=== PATIENT | male | born 1955 | race Caucasian/White ===

== ENCOUNTER 2021-12-08 11:25 | Outpatient (CLI) | payer MEDICARE, SELFPAY ==
[2021-12-08 21:22] LABS: Albumin* 4.6 g/dL (3.3-5.0); Chloride* 100 mmol/L (96-114); Sodium* 141 mmol/L (135-149)
[2021-12-08 21:24] LABS: Cholesterol* 128 mg/dL (90-199); Estimated Glomerular Filt Rate 83 ml/min
[2021-12-08 21:25] LABS: Alanine Aminotransferase* 36 U/L (4-50); Alkaline Phosphatase* 64 U/L (40-150); Aspartate Amino Transferase* 35 U/L (12-35); Bilirubin Total* 0.7 mg/dL (0.1-1.5); Blood Urea Nitrogen* 23 mg/dL (7-30); Carbon Dioxide* 33 mmol/L (20-32); Glucose* 104 mg/dL (60-115); Total Protein* 7.6 g/dL (6.0-8.3); Triglycerides* 187 mg/dL (40-149)
[2021-12-08 21:36] LABS: Calcium* 8.9 mg/dL (8.4-10.6); HDL Cholesterol* 47 mg/dL (>=40); LDL Cholesterol Calculated 44 mg/dL (<100)
[2021-12-08 21:52] LABS: PSA Screen* 0.72 ng/mL (0.10-4.00)
== END 2021-12-08 11:26 | disposition home or self-care (01) ==
PROVIDERS: PCP Family Medicine; Visit Provider Family Medicine
DX: Z00.00 Encounter for general adult medical examination without abnormal findings (principal); E78.5 Hyperlipidemia, unspecified; I25.10 Atherosclerotic heart disease of native coronary artery without angina pectoris; I10 Essential (primary) hypertension; R73.03 Prediabetes; Z12.5 Encounter for screening for malignant neoplasm of prostate
CPT/HCPCS: 80053; 80061; 84153

== ENCOUNTER 2023-01-19 09:38 | Outpatient (CLI) | payer MEDICARE, SELFPAY | END 2023-01-19 09:39 | disposition home or self-care (01) | PROVIDERS: PCP Physician Assistant Medical; Visit Provider Physician Assistant Medical | DX: Z00.00 Encounter for general adult medical examination without abnormal findings (principal); E78.5 Hyperlipidemia, unspecified; I10 Essential (primary) hypertension; R73.03 Prediabetes; I25.10 Atherosclerotic heart disease of native coronary artery without angina pectoris; Z96.659 Presence of unspecified artificial knee joint; Z12.5 Encounter for screening for malignant neoplasm of prostate | CPT/HCPCS: 80053; 80061; 84153 ==

== ENCOUNTER 2024-02-15 11:40 | Outpatient (CLI) | payer MEDICARE, SELFPAY ==
--- OUTSIDE RECORDS SUMMARY | 2024-02-17 09:49 | XMS_ITS | Data Portability ---
Author Organization [place] [facility] [place] [facility] Address [address] [place] [address] Assessment Encounter Date Assessment Date Assessment LastModified by Organization Details LastModified Time 12/03/2020 12/03/2020 65 year old male with a right epididymal lesion. [email or web address] Not available 12/03/2020 12:10:33 Plan of Treatment Reminders Order Date Submit Date Provider Last Modified By Organization Details Last Modified Time Details Appointments None record ed. Lab None record ed. Referral None record ed. Procedures None record ed. Surgeries None record ed. Imaging None record ed. Medication Orders None record ed. Patient TargetsNo targets recorded. Patient InstructionsNo instructions recorded. Reason for Referral None Reported. Procedures Surgical History Date Name Laterality Status Provider Name and Address Organization Details Recorded Time 04/26/19 18 Diagnostic colonoscopy completed Not Available Health Note 12/02/2020 21:44:54 Excise epiphyseal bar completed Not Available Health Note 12/02/2020 21:44:54 Insert epicard eltrd open completed Not Available Health Note 12/02/2020 21:44:54 Removal of sperm duct(s) completed Not Available Health Note 12/02/2020 21:44:54 Imaging Results None recorded. Procedure Notes None recorded. Medical Equipment None Reported. Allergies No known drug allergies Medications Name Sig Start Date Stop Date Status Note LastModified by Organization Details LastModified Time amlodipine 5 mg tablet TAKE ONE TABLET BY MOUTH EVERY DAY 12/03 completed Not Available Not Available Not Available triamterene 37.5 mg-hydrochl orothiazide 25 mg capsule TAKE ONE CAPSULE BY MOUTH EVERY DAY active Not Available Not Available No t Available terbinafine HCl 250 mg tablet TAKE ONE TABLET BY MOUTH EVERY DAY active Not Available Not Available No t Available cephalexin 500 mg capsule TAKE 4 CAPSULES BY MOUTH 1 HOUR PRIOR TO DENTAL PROCEDURE active Not Available Not Available No t Available furosemide 20 mg tablet TAKE ONE TABLET BY MOUTH EVERY DAY active Not Available Not Available No t Available levofloxaci n 500 mg tablet TAKE ONE TABLET BY MOUTH EVERY DAY 12/03 completed Not Available Not Available Not Available lisinopril 40 mg tablet TAKE ONE TABLET BY MOUTH EVERY DAY active Not Available Not Available No t Available ezetimibe 10 mg tablet 10mg 1/day active Not Available Not Available No t Available rosuvastati n 20 mg tablet TAKE ONE TABLET BY MOUTH AT BEDTIME 12/03 completed Not Available Not Available Not Available Fish Oil 1200 mg 1/day active Not Available Not Available No t Available amlodipine 5mg 1/day active Not Available Not Available Not Available lisinopril 40mg 1/day active Not Available Not Available No t Available multivitami n don't know 1/day active Not Available Not Available No t Available rosuvastati n 20 mg sprinkle capsule 20mg 3 times per week/day active Not Available Not Available No t Available Vitals Date Recorded Body weight Body height Body mass index (BMI) Provider Name and Address Organization Details Last Updated DateTime 12/03/2020 [id number] 30193 g 182.88 cm 35.3 kg/m2 Not Available Health Note 12/03/2020 08:31:15 Social History Question Answer Notes LastModified by Organizat ion Details LastModified Time Tobacco Smoking Status Former Smoker Not Available Health Note 12/02/2020 21:44:55 What Is Your Level Of Alcohol Consumption? Occasional [email or web address] Information not available 12/02/2020 What Is Your Level Of Caffeine Consumption? None [email or web address] Information not available 12/02/2020 How Much Tobacco Do You Chew? Never Used Chewing Tobacco [email or web address] Information not available 12/02/2020 Do You Or Have You Ever Used E-cigarettes Or Vape? Never Used Electronic Cigarettes [email or web address] Information not available 12/02/2020 When Did You Quit Smoking? 16+ Years Since Last Cigarette [email or web address] Information not available 12/02/2020 Recreational Drug Use No [email or web address] Information not available 12/02/2020 Marital Status [email or web address] Informatio n not available 12/02/2020 What Was The Date Of Your Most Recent Tobacco Screening? 12/03/2020 Information not available 12/03/2020 Do You Or Have You Ever Used Smokeless Tobacco? Never Used Smokeless Tobacco [email or web address] Information not available 12/02/2020 How Many Years Have You Smoked Tobacco? 15 [email or web address] Information not available 12/02/2020 Do You Or Have You Ever Used Any Other Forms Of Tobacco Or Nicotine? No Information not available 12/03/2020 Sex: Unknown Functional Status None recorded. Mental Status None recorded. Family History Relationship Description Onset Age of this Age Resolved Age Notes LastModified by Organization Details LastModified Time Maternal Grandfather Family history of diabetes mellitus [email or web address] Not available 2020 21:44:53 Paternal Grandfather Family history of malignant neoplasm [email or web address] Not available 2020 21:44:53 Medical History Condition Response High Blood Pressure Y Kidney Stones N Depression N Lung Disease N GERD/Acid Reflux N Diabetes N Sexually Transmitted Infection N Bleeding Disorder N Cancer N High Cholesterol Y Heart Disease Y Immunizations Vaccine Type Date Status Provider Name and Address Organization Details Recorded Time SARS-COV-2 (COVID-19) vaccine, UNSPECIFIED 07/21/2020 completed Not Available Health Note 12/02/2020 21:44:59 pneumococcal, unspecified formulation 03/04/2020 completed Not Available Health Note 12/02/2020 21:44:59 influenza, unspecified formulation 03/04/2020 completed Not Available Health Note 12/02/2020 21:44:59 Past Encounters Encounter ID Performer Location Encounter Start Date Encounter Closed Date Diagnosis/Indication Diagnosis SNOMED-CT Code Diagnosis ICD10 Code [id number] Bernardino Walters MD [facility] [address] [place] [address] 12/03/2020 08:31:56 12/03/2020 16:04:13 Cyst of epididymis 18541781 N50.3 Health Concerns Section Related Observation LastModified by Organization Detai ls LastModified Time None Recorded Concern Status LastModified by Organization Details LastModified Time None Recorded Advance Directives Directive None Recorded Payers Encounter Date Sequence Insurance Name Policy Number Policy Schmidt Covered Member ID Schmidt Member ID Guarantor Name 12/03/2020 1 [place] (MEDICARE [place]AC[place] PPO) [id number] Toby Harrell [id number] Toby Harrell Notes Date Note Type Note Provider Name and Address Organization Details Recorded Time 12/03/2020 text/html HPI Notes: This is a 65 year old male who is referred by Dr. Kraft for the evaluation and management of a testicular lesion. He first noticed this about 2 months ago. Around the beginning of September he noted worsening right scrotal swelling. He was treated with a coruse of antibiotic with improvement in this. But he did subsequently have a ultrasound performed 10/31/2020 which showed a nodular area of the epididymidis on the right measuring about 1.4 cm, but no solid masses or areas concerning for malignancy. Not painful or bothersome He is participating in prostate cancer screening. His most recent PSA was 0.61 ng/mL (09/09/2020) There is no family history of prostate cancer. Bernardino Walters MD [address] [place] [address],[place] [address], [place], [address], [facility] 12/03/2020 12:10:51
--- OUTSIDE RECORDS SUMMARY | 2024-02-17 09:49 | XMS_ITS | Clinical Summary ---
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 Active aspirin 81 mg tablet Take 81 mg by mouth once daily with a meal. 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 Max acetaminophen dose: 4000mg in 24 hrs. 90 tablet 04/02/2019 Active amLODIPine (NORVASC) 5 mg tabletIndications:HT N (hypertension) Take 1 tablet by mouth once daily. 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 90 tablet 3 02/22/2020 Active furosemide (LASIX) 20 mg tablet Take 20 mg by mouth once daily. 12/09/2019 Active triamterene-hydrochl orothiazide, 37.5-25 mg, (DYAZIDE) 37.5-25 mg capsule Take 1 capsule by mouth. 12/16/2019 Active rosuvastatin (CRESTOR) 20 mg tabletIndications: CVD (arteriosclerotic cardiovascular disease),Coronary artery disease of [place] artery of [place] heart with stable angina pectoris (HC) TAKE ONE TABLET BY MOUTH AT BEDTIME 90 Tablet 02/28/2021 Active ezetimibe (ZETIA) 10 mg tabletIndications: CVD (arteriosclerotic cardiovascular disease) Take 1 Tablet (10 mg) by mouth once daily. 90 Tablet 3 04/21/2021 Active Active Problems Problem Noted Date Diagnosed Date Dyslipidemia 04/04/2019 Acute blood loss anemia 03/30/2019 CAD s/p 5v CABG 03/29/19 03/28/2019 Overview (03/30/2019): CABG x 5 with LIN-LAD, Radial artery-OM1, RSVG-D1 and sequenced to RPDA-RPLA 03/29/[address] Diaz History of rheumatic fever 03/28/2019 Prediabetes 03/28/2019 JOAN on CPAP 08/09/2014 Fungal nail infection 11/30/2012 Essential hypertension 10/24/2009 Resolved Problems Problem Noted Date Diagnosed Date Resolved Date Post-op MARCELINA 04/02/2019 04/21/2019 Immunizations Name Administration Dates Next Due Tdap 01/17/2008 Family History Medical History Relation Name Comments Hypertension Brother Hypertension Sister Relation Name Status Comments Brother Father (Age 37) MVA Mother (Age 34) MVA Sister Social History Tobacco Use Types Packs/Day Years Used Date Smoking Tobacco: Former Cigarettes 1.5 17 0 04/26/1968 - 04/26/1985 Smokeless Tobacco: Never Alcohol Use Standard Drinks/Week Comments Yes 3 (1 standard drink = 0.6 oz pur e alcohol) Minimal PHQ-2 Answer Date Recorded PHQ-2 Score 0 04/17/2019 Social Connections Answer Date Recorded Frequency of Communication with Friends and Fami ly Not on file 04/21/2021 Financial Resource Strain Answer Date R ecorded Difficulty of Paying Living Expenses Not on file 04/21/2021 Difficulty of Paying Living Expenses Not on file 04/21/2021 Sex and Gender Information Value Date Recorded Sex Assigned at Not on file Gender Identity Not on file Sexual Orientation Not on file Obstetrics History Last Filed Vital Signs Vital Sign Reading Time Taken Comments Blood Pressure 116/72 04/21/2021 10:09 AM FOOD PRODUCTION MANAGER Pulse 66 04/21/2021 10:09 AM FOOD PRODUCTION MANAGER Temperature 36.8 ??C (98.3 ??F) 04/02/2019 7:30 AM CS T Respiratory Rate 16 04/21/2021 10:09 AM FOOD PRODUCTION MANAGER Oxygen Saturation 97% 04/21/2021 10:09 AM FOOD PRODUCTION MANAGER Inhaled Oxygen Concentration - - Weight 117.7 kg (259 lb 8 oz) 04/21/2021 10:09 A M FOOD PRODUCTION MANAGER Height 182.9 cm (6' 0.01) 04/21/2021 10:[address] Body Mass Index 35.19 04/21/2021 10:09 AM FOOD PRODUCTION MANAGER Plan of Treatment Health Maintenance Due Date Last Done Comments Hepatitis C screening for ag e 18-79 1973 Zoster (shingles) series for age 50+ (1 of 2) 2005 Colonoscopy through age 75 08/27/201608/27 (Completed outside of [facility]) Tetanus booster 01/16/2018 01/17/2008 Medicare Wellness for age 65+ 02/13/2020 Pneumococcal series for age 65+ (1 of 1 - PCV) 02/13/2020 Depression screening for age 12+ 04/21/2020 04/21/2019, 04/21/2019, 04/17/2019, Additional history exists BMI (ht and wt on same day) for age 18+ 04/21/2022 04/21/2021, 02/22/2020, 05/17/2019, Additional history exists COVID-19 vaccine series (2023- season) 2023 Influenza for age 65+ 12/26/2023 Lipids for age 45-75 04/14/2026 04/14/2021, 03/28/2019, 08/19/2012, Additional history exists Tdap Completed 01/17/2008 Procedures Procedure Name Priority Date/Time Associated Diagnosis Comments LIPID PANEL W REFLEX MEASURED LDL Routine 04/14/2021 8:51 AM FOOD PRODUCTION MANAGER CAD s/p 5v CABG 03/29/19 from Last 3 Months or Most Recently Relevant to Health Maintenance Results * (ABNORMAL) LIPID PANEL W REFLEX MEASURED LDL (04/14/2021 8:51 AM FOOD PRODUCTION MANAGER) CHOLESTEROL,TOTAL 89(L) 100 - 199 mg/dL 04/14/2021 3:41 PM FOOD PRODUCTION MANAGER [facility] TRIGLYCERIDES 86 <150 mg/dL 04/14/2021 3:41 PM FOOD PRODUCTION MANAGER [facility] HDL CHOLESTEROL 31(L) >40 mg/dL 3:41 PM FOOD PRODUCTION MANAGER [facility] NON-HDL CHOLESTEROL 58 <145 mg/dl 04/14/2021 3:41 PM FOOD PRODUCTION MANAGER [facility] CHOL/HDL RATIO 2.87 <4.50 04/14/2021 3:41 PM FOOD PRODUCTION MANAGER [facility] LDL CHOLESTEROL 41 <=130 mg/dL 04/14/2021 3:41 PM FOOD PRODUCTION MANAGER [facility] VLDL CHOLESTEROL 17 <=30 mg/dL 04/14/2021 3:41 PM FOOD PRODUCTION MANAGER [facility] PROVIDER ORDERED STATUS RANDOM 04/14/2021 3:41 PM FOOD PRODUCTION MANAGER [facility] Blood BLOOD SPECIMEN / Unknown Venipuncture / Unknown 04/14/2021 8:51 AM FOOD PRODUCTION MANAGER 04/14/2021 8:54 AM FOOD PRODUCTION MANAGER Armin Navarrete MD CHEMISTRY [facility] [address] [place] [address], from Last 3 Months or Most Recently Relevant to Health Maintenance Advance Directives * Full Code (Latest Code Status on File) Date Activated Date Inactivated Comments 03/28/2019 9:01 AM 04/02/2019 1:10 PM Care Teams Milled Lumber Grader Relationship Specialty Start Date End Date Federico Potter MD PCP - General Family Practice 03/07/19 Armin Navarrete MD Cardiology Cardiovascular Disease 05/15/19
--- OUTSIDE RECORDS SUMMARY | 2024-02-17 09:49 | XMS_ITS | Continuity of Care Document ---
Author Name [facility] Organization [facility] Care Team Providers Care Table Games Supervisor Name Role Phone [facility] Unavailable Unavailable Problems Combined list of problems from Department of [facility] and [facility] facilities. It does not include entries that were removed or entered in error. Problem Status Onset Date Problem Type Date of Resolution Comments Source Bunion Active Condition [facility] Coronary arteriosclerosis Active Condition [facility] Erectile dysfunction [facility] Exposure to potentially hazardous substance Active Condition [facility] Hearing loss Active Condition [facility] History of appendectomy Active Condition [facility] History of coronary artery bypass grafting Active Condition [facility] HTN - Hypertension ([facility] [id number]) Active Condition [facility] Hyperlipidemia Active Condition [facility] Prediabetes Active Condition [facility] Sleep apnea Active Condition [facility] Tinnitus Active Condition [facility] Diagnosis: ICD-10-CM M21.40 Flat foot [pes planus] (acquired), unspecified foot Active Diagnosis [facility] Diagnosis: ICD-10-CM Z00.01 Encounter for general adult medical exam w abnormal findings Active Diagnosis [facility] Diagnosis: ICD-10-CM 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 Medication Details Route Status Patient Instructions Prescription Expires Prescription Number Last Dispense Date Ordering Provider Order Date Order Qty Source AMLODIPINE BESYLATE 10MG TAB TAKE ONE-HALF TABLET BY MOUTH EVERY DAY ORAL ACTIVE RADHIKAL RAYMOND E 2019 [facility] ASPIRIN TAB TAKE 81MG BY MOUTH EVERY DAY ORAL ACTIVE RADHIKAL RAYMOND E 2019 [facility] EZETIMIBE 10MG TAB TAKE ONE TABLET BY MOUTH EVERY DAY ORAL ACTIVE STOCK,TYS ON W 2020 [facility] FIBER TAB,CHEWABL E CHEW ONE TABLET BY MOUTH EVERY DAY ORAL ACTIVE RADHIKA,L RAYMOND E 2019 [facility] FISH OIL 1000MG (500MG DHA/EPA) CAP,ORAL TAKE 1 CAPSULE BY MOUTH EVERY DAY ORAL ACTIVE RADHIKA,L RAYMOND E 2019 [facility] FUROSEMIDE 20MG TAB TAKE ONE TABLET BY MOUTH EVERY DAY ORAL ACTIVE RADHIKA,L RAYMOND E 2019 [facility] HYDROCHLORO THIAZIDE/TR IAMTERENE TAB TAKE ONE TABLET BY MOUTH EVERY DAY ORAL ACTIVE STOCK,TYS ON W 2021 [facility] LISINOPRIL 40MG TAB TAKE ONE TABLET BY MOUTH EVERY DAY ORAL ACTIVE RADHIKA,L RAYMOND E 2019 [facility] MELATONIN CAP/TAB TAKE BY MOUTH AT BEDTIME ORAL ACTIVE RADHIKA,L RAYMOND E 2019 [facility] MULTIVITAMI NS CAP/TAB TAKE ONE TABLET BY MOUTH EVERY DAY ORAL ACTIVE RADHIKA,L RAYMOND E 2019 [facility] PSYLLIUM PWDR,ORAL TAKE 1 TEASPOON FUL BY MOUTH EVERY DAY ORAL ACTIVE RADHIKA,L RAYMOND E 2019 [facility] ROSUVASTATI N CA 5MG TAB TAKE FOUR TABLETS BY MOUTH 3X PER WEEK ORAL ACTIVE STOCK,TYS ON W 2020 [facility] Immunizations Combined list of available immunizations from the Department of Defense and Veterans Affairs facilities. Immunization Series Date Given Administered By Site Reaction Lot Number CVX Code Drug Deputy Attorney General Status Comments Source INFLUENZA, HIGH-DOSE, QUADRIVALENT 2023 JC BELTRE RIGHT DELTO ID [id number] 197 complet ed [facility] COVID-19 (PFIZER), MRNA, LNP-S, PF, SHRAVAN-SUCROSE, 30 MCG/0.3 ML (AGES 12+ YEARS) 1 2023 JC BELTRE RIGHT DELTO ID [id number] 309 complet ed [facility] PNEUMOCOCCAL CONJUGATE PCV20, POLYSACCHARID E [id number] CONJUGATE, ADJUVANT, PF 2021 HABTESELASSIE ,ANDOM G LEFT DELTO ID [id number] 216 complet ed [facility] INFLUENZA VACCINE, QUADRIVALENT, ADJUVANTED 2021 HABTESELASSIE ,ANDOM G RIGHT DELTO ID [id number] 205 complet ed [facility] COVID-19 (Talk Local), MRNA, LNP-S, BIVALENT, PF, 30 MCG/0.3 ML DOSE 2021 300 complet ed [facility] INFLUENZA, INJECTABLE, QUADRIVALENT, PRESERVATIVE FREE 2020 150 complet ed [facility] COVID-19 (Talk Local), MRNA, LNP-S, PF, 30 MCG/0.3 ML DOSE 3 2020 208 complet ed PFR; [id number]; 1 [facility] COVID-19 (Talk Local), MRNA, LNP-S, PF, 30 MCG/0.3 ML DOSE 2 2020 208 complet ed PFR; [id number]; 1 [facility] COVID-19 (Talk Local), MRNA, LNP-S, PF, 30 MCG/0.3 ML DOSE 1 2020 208 complet ed PFR; [id number]; 1 [facility] ZOSTER RECOMBINANT 2 2020 187 complet ed [facility] INFLUENZA, INJECTABLE, QUADRIVALENT, PRESERVATIVE FREE 2019 150 complet ed [facility] PNEUMOCOCCAL POLYSACCHARID E [id number] 2019 33 complet ed [place]CK and CO,[id number] 22 [facility] ZOSTER RECOMBINANT 1 2019 187 complet ed [facility] TD (ADULT) 2018 138 complet ed [facility] TD (ADULT), 5 LF TETANUS TOXOID, PRESERVATIVE FREE, ADSORBED 2017 113 complet ed [facility] TDAP 2007 115 complet ed [facility] TD (ADULT), 2 LF TETANUS TOXOID, PRESERVATIVE FREE, ADSORBED 1998 09 complet ed [facility] Results Combined list of recent chemistry, hematology and other laboratory results from Department of Defense and Veterans Affairs, ranging from 15 months to all on record, depending upon the facility. Order Name Results Value Reference Range Date Interpretation Specimen Comments Source HEMOGLOB IN A1C HEMOGLOBIN A1C/HEMOGL OBIN.TOTAL IN BLOOD 6.2 4.0 - 6.0 04/29 H Specimen Type: BLOOD Comment: Values obtained from A1C measurement s can vary. For typical A1C assays, a reported value of 7.0 could actually be between 6.7 and 7.3 if measured by a reference method. A reported value of 9.0 could actually be between 8.7 and 9.3. Ref: http://www. ngsp.org/[place] Pdata.asp Ordering Provider: REGINA ALFROD Report Released Date/Time: Apr 09, 2022 11:32 AM Reporting Lab: [facility] [address] Performing Lab: [facility] [address] [place] [facility] LIPID PANEL,NO N-FASTIN G CHOLESTERO L [MASS/VOLU ME] IN SERUM OR PLASMA 102 mg/dL <199 - 199 04/29 Specimen Type: PLASMA No comment entered. Ordering Provider: REGINA ALFORD Report Released Date/Time: Apr 09, 2022 11:32 AM Reporting Lab: [facility] [address] Performing Lab: [facility] [address] [place] [facility] LIPID PANEL,NO N-FASTIN G CHOLESTERO L IN HDL [MASS/VOLU ME] IN SERUM OR PLASMA 39 mg/dL 40 04/29 L Specimen Type: PLASMA No comment entered. Ordering Provider: REGINA ALFORD Report Released Date/Time: Apr 09, 2022 11:32 AM Reporting Lab: [facility] [address] Performing Lab: [facility] [address] [place] [facility] LIPID PANEL,NO N-FASTIN G CHOLESTERO L IN LDL [MASS/VOLU ME] IN SERUM OR PLASMA BY CALCULATIO N 35 mg/dL <99 - 99 04/29 Specimen Type: PLASMA No comment entered. Ordering Provider: REGINA ALFORD Report Released Date/Time: Apr 09, 2022 11:32 AM Reporting Lab: [facility] [address] Performing Lab: [facility] [address] [place] [facility] LIPID PANEL,NO N-FASTIN G CHOLESTERO L IN VLDL [MASS/VOLU ME] IN SERUM OR PLASMA BY CALCULATIO N 28 mg/dL <29 - 29 04/29 Specimen Type: PLASMA No comment entered. Ordering Provider: REGINA ALFORD Report Released Date/Time: Apr 09, 2022 11:32 AM Reporting Lab: [facility] [address] Performing Lab: [facility] [address] [place] [facility] LIPID PANEL,NO N-FASTIN G CHOLESTERO L NON HDL [MASS/VOLU ME] IN SERUM OR PLASMA 63 mg/dL <129 - 129 04/29 Specimen Type: PLASMA No comment entered. Ordering Provider: REGINA ALFORD Report Released Date/Time: Apr 09, 2022 11:32 AM Reporting Lab: [facility] [address] Performing Lab: [facility] [address] [place] [facility] LIPID PANEL,NO N-FASTIN G TRIGLYCERI DE [MASS/VOLU ME] IN SERUM OR PLASMA 139 mg/dL <149 - 149 04/29 Specimen Type: PLASMA No comment entered. Ordering Provider: REGINA ALFORD Report Released Date/Time: Apr 09, 2022 11:32 AM Reporting Lab: [facility] [address] Performing Lab: [facility] [address] [place] [facility] BASIC METABOLI C PANEL+MG CREATININE [MASS/VOLU ME] IN SERUM OR PLASMA 1.0 mg/dL 0.7 - 1.2 04/29 Specimen Type: PLASMA No comment entered. Ordering Provider: REGINA ALFORD Report Released Date/Time: Apr 09, 2022 11:32 AM Reporting Lab: [facility] [address] Performing Lab: [facility] [address] [place] [facility] BASIC METABOLI C PANEL+MG UREA NITROGEN [MASS/VOLU ME] IN SERUM OR PLASMA 17 mg/dL 8 - 26 04/29 Specimen Type: PLASMA No comment entered. Ordering Provider: REGINA ALFORD Report Released Date/Time: Apr 09, 2022 11:32 AM Reporting Lab: [facility] [address] Performing Lab: [facility] [address] [place] [facility] BASIC METABOLI C PANEL+MG GLUCOSE [MASS/VOLU ME] IN SERUM OR PLASMA 120 mg/dL 70 - 100 04/29 H Specimen Type: PLASMA No comment entered. Ordering Provider: REGINA ALFORD Report Released Date/Time: Apr 09, 2022 11:32 AM Reporting Lab: [facility] [address] Performing Lab: [facility] [address] [place] [facility] BASIC METABOLI C PANEL+MG SODIUM [MOLES/VOL UME] IN SERUM OR PLASMA 140 mmol/L 136 - 145 04/29 Specimen Type: PLASMA No comment entered. Ordering Provider: REGINA ALFORD Report Released Date/Time: Apr 09, 2022 11:32 AM Reporting Lab: [facility] [address] Performing Lab: [facility] [address] [place] [facility] BASIC METABOLI C PANEL+MG POTASSIUM [MOLES/VOL UME] IN SERUM OR PLASMA 3.6 mmol/L 3.5 - 5.1 04/29 Specimen Type: PLASMA No comment entered. Ordering Provider: REGINA ALFORD Report Released Date/Time: Apr 09, 2022 11:32 AM Reporting Lab: [facility] [address] Performing Lab: [facility] [address] [place] [facility] BASIC METABOLI C PANEL+MG CHLORIDE [MOLES/VOL UME] IN SERUM OR PLASMA 101 mmol/L 98 - 107 04/29 Specimen Type: PLASMA No comment entered. Ordering Provider: REGINA ALFORD Report Released Date/Time: Apr 09, 2022 11:32 AM Reporting Lab: [facility] [address] Performing Lab: [facility] [address] [place] [facility] BASIC METABOLI C PANEL+MG CARBON DIOXIDE, TOTAL [MOLES/VOL UME] IN SERUM OR PLASMA 27 mmol/L 22 - 29 04/29 Specimen Type: PLASMA No comment entered. Ordering Provider: REGINA ALFORD Report Released Date/Time: Apr 09, 2022 11:32 AM Reporting Lab: [facility] [address] Performing Lab: [facility] [address] [place] [facility] BASIC METABOLI C PANEL+MG CALCIUM [MASS/VOLU ME] IN SERUM OR PLASMA 9.1 mg/dL 8.4 - 10.2 04/29 Specimen Type: PLASMA No comment entered. Ordering Provider: REGINA ALFORD Report Released Date/Time: Apr 09, 2022 11:32 AM Reporting Lab: [facility] [address] Performing Lab: [facility] [address] [place] [facility] BASIC METABOLI C PANEL+MG MAGNESIUM [MASS/VOLU ME] IN SERUM OR PLASMA 1.9 mg/dL 1.6 - 2.6 04/29 Specimen Type: PLASMA No comment entered. Ordering Provider: REGINA ALFORD Report Released Date/Time: Apr 09, 2022 11:32 AM Reporting Lab: [facility] [address] Performing Lab: [facility] [address] [place] [facility] BASIC METABOLI C PANEL+MG ANION GAP IN SERUM OR PLASMA 12 mmol/L 5 - 15 04/29 Specimen Type: PLASMA No comment entered. Ordering Provider: REGINA ALFORD Report Released Date/Time: Apr 09, 2022 11:32 AM Reporting Lab: [facility] [address] Performing Lab: [facility] [address] [place] [facility] BASIC METABOLI C PANEL+MG GLOMERULAR FILTRATION RATE/1.73 SQ M.PREDICTE D [VOLUME RATE/AREA] IN SERUM, PLASMA OR BLOOD BY CREATININE -BASED FORMULA (CKD-EPI 2020) 82 60 04/29 Specimen Type: PLASMA No comment entered. Ordering Provider: REGINA ALFORD Report Released Date/Time: Apr 09, 2022 11:32 AM Reporting Lab: [facility] [address] Performing Lab: [facility] [address] [facility] COVID-19 AND FLU/RSV DIAG PANEL(CE PHEID) SARS-COV-2 (COVID-19) RNA [PRESENCE] IN RESPIRATOR Y SPECIMEN BY SONIDO WITH PROBE DETECTION Not Detected 02/24 Specimen Type: NASOPHARYNG EAL Comment: Cepheid GeneXpert (618) Ordering Provider: SERENA JIMÉNEZ Report Released Date/Time: Jul 22, 2021 12:11 PM Reporting Lab: [facility] [address] Performing Lab: [facility] [address] [place] [facility] COVID-19 AND FLU/RSV DIAG PANEL(CE PHEID) INFLUENZA VIRUS A RNA [PRESENCE] IN UPPER RESPIRATOR Y SPECIMEN BY SONIDO WITH PROBE DETECTION Not Detected 02/24 Specimen Type: NASOPHARYNG EAL Comment: CepCountdown To Buyid FridgeXpert (618) Ordering Provider: SERENA JIMÉNEZ Report Released Date/Time: Jul 22, 2021 12:11 PM Reporting Lab: [facility] [address] Performing Lab: [facility] [address] [place] [facility] COVID-19 AND FLU/RSV DIAG PANEL(CE PHEID) INFLUENZA VIRUS B RNA [PRESENCE] IN UPPER RESPIRATOR Y SPECIMEN BY SONIDO WITH PROBE DETECTION Not Detected 02/24 Specimen Type: NASOPHARYNG EAL Comment: CepCountdown To Buyid FridgeXpert (618) Ordering Provider: SERENA JIMÉNEZ Report Released Date/Time: Jul 22, 2021 12:11 PM Reporting Lab: [facility] [address] Performing Lab: [facility] [address] [place] [facility] COVID-19 AND FLU/RSV DIAG PANEL(CE PHEID) RESPIRATOR Y SYNCYTIAL VIRUS RNA [PRESENCE] IN UPPER RESPIRATOR Y SPECIMEN BY SONIDO WITH PROBE DETECTION Not Detected 02/24 Specimen Type: NASOPHARYNG EAL Comment: Cepheid GeneXpert (618) Ordering Provider: SERENA JIMÉNEZ Report Released Date/Time: Jul 22, 2021 12:11 PM Reporting Lab: [facility] [address] Performing Lab: [facility] [address] [facility] Vital Signs Combined list of inpatient and outpatient Vital Signs from Department of Defense and Veterans Affairs, ranging from 12 months to all on record, depending upon the facility. Vital Sign Value Date Comments Source SYSTOLIC BLOOD PRESSURE 117 04/29/2023 11:15:27 [facility] DIASTOLIC BLOOD PRESSURE 75 04/29/2023 11:15:27 [facility] PULSE OXIMETRY 94% 04/29/2023 11:15:27 [facility] WE[facility] 253 04/29/2023 11:15:27 [facility] BMI 34kg/m2 04/29/2023 11:15:27 [facility] PAIN 0 04/29/2023 11:15:27 [facility] HEIGHT 72 04/29/2023 11:15:27 [facility] PULSE 68 04/29/2023 11:15:27 [facility] RESPIRATION 16 04/29/2023 11:15:27 [facility] Encounters Combined list of: 1) Encounters from Department of Veterans Affairs facilities going back up to thelast 18 months. 2) Encounters from the Department of [facility] facilities going back up to 280 months. Location Location Details Encounter Type Encounter Number Reason For Visit Attending Provider ADM Date DC Date Status Disposition Source [facility] PRO PHONE CALL 5-10 MIN [id number] Diagnos is: ICD-10- CM Z71.89 Other specifi ed drug abuse counselor ing<br/ > VAMSHI SAEED 08/19 [facility] Outpatient Encounter [id number] 08/20 [facility] MOD SED SAME PHYS/[place] [id number] Diagnos is: ICD-10- CM Z86.010 Persona l history of colonic polyps< br/> BERTHA MORA AN J 09/08 [facility] Outpatient Encounter [id number] 09/08 [facility] Outpatient Encounter [id number] 09/08 [facility] Outpatient Encounter [id number] 09/09 [facility] Outpatient Encounter [id number] SPENSER ONEILL MIKEY C 09/09 [facility] Outpatient Encounter [id number] DEMETRIA INIGUEZ ISTINE A 12/29 [facility] OFFICE O/P EST MOD 30-39 MIN [id number] Diagnos is: ICD-10- CM M67.02 Short Marcelo s tendon (acquir ed), left ankle<b r/> MADELINE HINTONNEERAJ W C 01/07 [facility] ORTHC/PROS TC MGMT SBSQ ENC [id number] Diagnos is: ICD-10- CM M21.40 Flat foot [pes planus] (acquir ed), unspeci fied foot
CHRISTY MOLINA 01/28 [facility] OFFICE O/P EST MOD 30 MIN [id number] Diagnos is: ICD-10- CM Z00.01 Encount er for general adult medical exam w abnorma l finding s
ERIN ALFORD N W 04/29 [facility] ORTHC/PROS TC MGMT SBSQ ENC [id number] Diagnos is: ICD-10- CM M21.40 Flat foot [pes planus] (acquir ed), unspeci fied foot
CHRISTY MOLINA 05/17 [facility] [place] [facility] ORTHC/PROS TC MGMT SBSQ ENC [id number] Diagnos is: ICD-10- CM M21.40 Flat foot [pes planus] (acquir ed), unspeci fied foot
CHRISTY MOLINA 01/09 [facility] Social History Combined list of available smoking, tobacco, and other social history from Department of Defense and [facility] Affairs facilities. Social History Type Response Date Comment Sourc e Tobacco smoking status NHIS VA-TOBACCO FORMER USER 04/29/2023 [place] [facility] History of tobacco use NC-TOBACCO QUIT 1 5 YRS OR MORE 04/29/2023 [facility] History of tobacco use NC-TOBACCO FORMER USER 04/09/2022 [facility] History of tobacco use NC-TOBACCO FORMER USER 02/27/2021 [facility] History of tobacco use NC-TOBACCO QUIT 1 5 YRS OR MORE 03/04/2020 [facility] Plan of Care List of future care activities from [facility] [employer] facilities. Additional future care activities may be listed in the Assessment and Plan section. Date/Time Care Activity Care Activity Detail Facili ty 02/29/2024 AMBULATORY - NONE AMBULATORY - NONE [facility] 02/29/2024 AMBULATORY - MEDICINE AMBULATORY - MEDICI NE [facility] 03/08/2024 Laboratory - Chemistry Order BAS IC METABOLIC PANEL+MG PLASMA SP ONCE [facility] 03/08/2024 Laboratory - Chemistry Order HEM OGLOBIN A1C BLOOD SP ONCE [facility] 03/08/2024 Laboratory - Chemistry Order LIP ID PANEL,NON-FASTING PLASMA SP ONCE [facility] 03/08/2024 Laboratory - Chemistry Order PSA SERUM SP ONCE [facility]
--- OUTSIDE RECORDS SUMMARY | 2024-02-17 09:49 | XMS_ITS | Patient Health Record ---
Author Organization To [facility] Address [address] [place] [address] Care Team Providers Care Certified Registered Nurse Practitioner Name Role Phone JUAN PATEL Unavailable [phone] Allergies No Known Allergies Reason For Referral No Information Medications Medication SIG (Take, Route, Frequency, Duration) Notes Start Date End Date Status Lisinopril 40 MG 1 tablet Orally Once a day for 30 day(s) Active Triamterene-HCTZ 37.5-25 MG 1 tablet in the morning Orally Once a day for 30 day(s) Active Furosemide 20 MG 1 tablet Orally Once a day for 30 day(s) Active Amlodipine 5 mg 1 tab by mouth once daily Active Multivitamin - 1 tablet Orally Once a day for 30 day(s) Active Doxycycline Monohydrate 100 MG 1 capsule Orally one capsule right away and other capsule at bed time for 1 day(s) 06/03/2021 Not-Taking Valium 10 MG 1 tablet Orally One hour prior to procedure for 1 days 06/03/2021 Not-Taking oxyCODONE-Acetaminophen 5-325 MG 1 tablet as needed Orally every 6 hrs for severe pain relief, not for 2 days 06/03/2021 Not-Taking HYDROcodone-Acetaminophen 5-325 MG 1 tablet Orally one hour prior to procedure then 1-2 tablets every 4-6 hours as needed for moderate pain relief for 5 days 06/03/2021 Not-Taking Ezetimibe 10 MG 1 tablet Orally Once a day for 30 day(s) Active Fish Oil 1200 MG 1 capsule Orally Onc e a day for 30 day(s) Active Rosuvastatin Calcium 20 MG 1 tablet Orally Once a day for 30 day(s) Active Social History Tobacco Use: Social History Observation Description Date Details (start date - stop date) Former Smoker NA - NA Tobacco Use/Smoking Question Answer Notes Are you a former smoker How long has it been since you last smoked? > 10 years Alcohol Screen (Audit-C) Question Answer Notes Did you have a drink contain ing alcohol in the past year? Yes How often did you have a dri nk containing alcohol in the past year? 2 to 3 times a week (3 points) How many drinks did you have on a typical day when you were drinking in the past year? 1 or 2 drinks (0 point) How often did you have 6 or more drinks on one occasion in the past year? Less than monthly (1 point) Points 4 Interpretation Positive Problems Problem Type SNOMED Code ICD Code Onset Dates Problem Status W/U Status Risk Notes Problem [id number] Primary osteoarthritis, left shoulder (M19.012) Active confirmed Problem [id number] Osteoarthritis o f right ankle and foot (M19.071) Active confirmed Plan Of Treatment No Information Insurance Providers Payer Name Payer Address Payer Phone Subscriber Number Group Number Insured Name Patient Relationship to Insured Coverage Start Date Coverage End Date BCBS Medicare Replacemen t [address] [address] [place], [place] [id number] Toby Harrell Self - patient is the insured MEDICARE PART B [address] [facility] [place] [id number] Toby Harrell Self - patient is the insured Medical (General) History Medical History History ICD Code osteoarthritis Obstructive sleep apnea constipation high blood pressure high cholesterol coronary artery disease Surgical History Surgery Date(Month/Year) Right knee Replacement 2010 Left Knee Replacement 2017 Appendectomy 1974 5 bypass- cardiac 2019 Hospitalization History Reason Date(Month/Year) see surgical history
== END 2024-02-15 11:41 | disposition home or self-care (01) ==
LOC: NFLDREF 02-17 09:42
PROVIDERS: PCP Physician Assistant Medical; Referring Provider Physician Assistant Medical; Visit Provider Physician Assistant Medical
DX: Z00.00 Encounter for general adult medical examination without abnormal findings (principal); E78.5 Hyperlipidemia, unspecified; I10 Essential (primary) hypertension; R73.03 Prediabetes; E78.2 Mixed hyperlipidemia; I25.10 Atherosclerotic heart disease of native coronary artery without angina pectoris; G47.33 Obstructive sleep apnea (adult) (pediatric); Z12.5 Encounter for screening for malignant neoplasm of prostate
CPT/HCPCS: 80053; 80061; 84443; G0103

== ENCOUNTER 2024-12-18 08:10 | Outpatient (CLI) | payer MEDICARE, SELFPAY | END 2024-12-18 08:11 | disposition home or self-care (01) | LOC: NFLDREF 12-19 18:04 | PROVIDERS: PCP Physician Assistant Medical; Visit Provider Dermatology | DX: E11.9 Type 2 diabetes mellitus without complications (principal); E78.2 Mixed hyperlipidemia; I10 Essential (primary) hypertension; I25.10 Atherosclerotic heart disease of native coronary artery without angina pectoris; Z12.5 Encounter for screening for malignant neoplasm of prostate | CPT/HCPCS: 80053; 80061; 82043; 82570; 84443; G0103 ==

== ENCOUNTER 2025-01-18 11:24 | Outpatient (CLI) | payer MEDICARE, SELFPAY ==
[2025-01-18 21:55] LABS: Alanine Aminotransferase* 27 U/L (4-50); Aspartate Amino Transferase* 32 U/L (12-35)
== END 2025-01-18 11:25 | disposition home or self-care (01) ==
LOC: NPINS 11:27
PROVIDERS: PCP Physician Assistant Medical; Visit Provider Dermatology
DX: B35.1 Tinea unguium (principal)
CPT/HCPCS: 84450; 84460

== ENCOUNTER 2025-04-05 08:37 | Outpatient (CLI) | payer MEDICARE, SELFPAY | END 2025-04-05 08:38 | disposition home or self-care (01) | LOC: NFLDREF 04-11 02:56 | PROVIDERS: PCP Physician Assistant Medical; Referring Provider Physician Assistant Medical; Visit Provider Physician Assistant Medical | DX: Z00.00 Encounter for general adult medical examination without abnormal findings (principal); E11.9 Type 2 diabetes mellitus without complications; E78.2 Mixed hyperlipidemia; I10 Essential (primary) hypertension; Z12.5 Encounter for screening for malignant neoplasm of prostate | CPT/HCPCS: 80053; 80061; 82043; 82570; 84443; G0103 ==